=== PATIENT | female | born 1980 | race Two or more races ===

== ENCOUNTER 2021-11-22 21:07 | Emergency (ER) | payer MEDICAID ==
[~2021-11-22] VITALS: Ht 162.6 cm; Wt 79.8 kg
[2021-11-22 21:07] VITALS: BP 138/70
== END 2021-11-22 22:36 | disposition home or self-care (01) ==
LOC: ER 21:07
DX: S52.501A Unspecified fracture of the lower end of right radius, initial encounter for closed fracture (principal); W01.0XXA Fall on same level from slipping, tripping and stumbling without subsequent striking against object, initial encounter; Y93.89 Activity, other specified; Y92.89 Other specified places as the place of occurrence of the external cause; Y99.8 Other external cause status

== ENCOUNTER 2023-09-27 12:51 | Emergency (ER) | payer MEDICAID ==
[~2023-09-27] VITALS: Ht 162.6 cm; Wt 86.1 kg
[2023-09-27 14:00] LABS: Basophils # (auto) 0 10 ^3/uL (0-0.2); Eosinophils # (auto) 0 10 ^3/uL (0-0.8); Hemoglobin 10.4 g/dL (12.2-16.2); Neutrophils # (auto) 10.3 10 ^3/uL (1.6-8.6)
[2023-09-27 14:02] LABS: Basophils % (auto) 0.1 % (0.0-2.0); Hematocrit 32.8 % (36.0-46.0); Lymphocytes # (auto) 0.9 10 ^3/uL (0.4-5.4); Lymphocytes % (auto) 6.8 % (10.0-50.0); Mean Corpuscular Hemoglobin 23.1 pg (28.0-32.0); Mean Corpuscular Hgb Conc. 31.6 g/dL (32.0-36.0); Monocytes # (auto) 1.4 10 ^3/uL (0-1.3); Monocytes % (auto) 11.5 % (0.0-12.0); Neutrophils % (auto) 81.6 % (37.0-80.0); Nucleated Red Blood Cells % 0.1 %; Red Cell Distribution Width 20.1 % (11.8-14.3); White Blood Cell 12.6 10^3/uL (4.4-10.8)
[2023-09-27 14:16] VITALS: BP 142/84; PULSE 134; RESP 16; O2SAT 97
[2023-09-27 14:25] LABS: Alanine Aminotransferase 23 U/L (7-40); Albumin 4.3 g/dL (3.2-4.8); Alkaline Phosphatase 89 U/L (46-116); Anion Gap 10 (5-15); Aspartate Aminotransferase 25 U/L (13-40); BUN/Creatinine Ratio 12.8 (10.0-20.0); Bilirubin, Total 0.5 mg/dL (0.2-1.0); Blood Urea Nitrogen 10 mg/dL (9-23); Calcium 8.8 mg/dL (8.5-10.1); Carbon Dioxide 26 mmol/L (20-30); Chloride 98 mmol/L (98-107); Glucose 104 mg/dL (74-106); Potassium 3.3 mmol/L (3.5-5.1); Sodium 134 mmol/L (136-145); Total Protein 6.5 g/dL (5.7-8.2)
[2023-09-27 14:36] LABS: Urine Bacteria MOD /hpf (None Seen); Urine Blood 3+ /uL (Negative); Urine Clarity HAZY (Clear); Urine Color Yellow (Yellow); Urine Protein, UAD 1+ (Negative); Urine Specific Gravity 1.012 (1.001-1.035); Urine Urobilinogen Normal (Negative); Urine WBC 607 /hpf (0 - 5); Urine WBC Clumps PRESENT /hpf (None Seen)
[2023-09-27] MEDS: SODIUM CHLORIDE 0.9% 1,000 ML IV ONE (14:53)
[2023-09-27] MEDS: cefTRIAXone 1GM/50ML D5W 50 ML IV ONE (15:28)
[2023-09-27] MEDS: ONDANSETRON HCL 4 MG/2 ML VIAL IV ONE (15:28)
[2023-09-27] MEDS ORDERED: IBUP-1456 PO (16:01)
[2023-09-27] MEDS ORDERED: CIPR-173 PO (16:01)
[2023-09-27 16:26] VITALS: TEMP 100.8
[2023-09-27] MEDS: ACETAMINOPHEN 500 MG TAB PO ONE (16:26)
== END 2023-09-27 16:40 | disposition home or self-care (01) ==
LOC: ER 12:51
DX: S53.401A Unspecified sprain of right elbow, initial encounter (principal); N39.0 Urinary tract infection, site not specified; R07.89 Other chest pain; Z79.1 Long term (current) use of non-steroidal anti-inflammatories (NSAID); Z79.2 Long term (current) use of antibiotics; W18.39XA Other fall on same level, initial encounter; Y93.89 Activity, other specified; Y92.89 Other specified places as the place of occurrence of the external cause; Y99.8 Other external cause status
CPT/HCPCS: 36415; 73080; 80053; 81001; 81025; 84484; 85025; 93005; 96361; 96365; 96375; 99285; J0696; J2405; J7030